=== PATIENT | female | born 1960 | race Caucasian/White ===

== ENCOUNTER 2017-04-09 11:54 | Emergency (ER) | payer BC ==
[2017-04-09 13:25] VITALS: BP 139/59
--- NOTE | 2017-04-09 13:56 | UC ---
Abdominal Pain Female HPI - HPI Summary HPI Summary: 56 y/o female presents to the urgent care c/o urinary frequency and pelvic pressure and cramping pain at times since 04/04/2017. Pt reports symptoms started after Thanksgiving, she developed similar symptoms and her PCP Dx with UTI, Rx Bactrim for 7 days. She finished ABx on 04/02/2017 and Sx return. Pt has been drinking cranberry juice. She feels pressure goes up to her ribs at times. However she has been mildly constipates. Today she did a good BM. Pain is dull pressure 06/02/ Pt denies fever, SOB, chest pain, lower back pain, N/V/ D. She had a PAP on 01/2017 and OBGYN Dx with Hx of kidney function distress. PAP was negative - History of Current Complaint Chief Complaint: UCGU Stated Complaint: URINARY Time Seen by Provider: 04/09/17 13:42 Hx Obtained From: Patient Hx Last Menstrual Period: 2015 Onset/Duration: Gradual Onset, Lasting Days - 5 days, Lasting Weeks, Still Present Severity Initially: Mild Severity Currently: Mild Pain Intensity: 2 Pain Scale Used: 0-10 Numeric Location: Suprapubic Radiates: Yes Radiates to: Other - to ribs at times Character: Dull Aggravating Factor(s): Nothing Alleviating Factor(s): Medications - ABX Rx by PCP Associated Signs and Symptoms: Positive: Constipation - mild, but has been resolving, Vaginal Discharge. Negative: Fever, Cough, Chest Pain, Back Pain, Vaginal Bleeding, Nausea, Vomiting, Diarrhea - Risk Factors Ectopic Risk Factor: Negative Ovarian Torsion Risk Factor: Negative Allergies/Adverse Reactions: Allergies Allergy/AdvReac Type Severity Reaction Status Date / Time No Known Allergies Allergy Verified 04/09/17 13:25 PMH/Surg Hx/FS Hx/Imm Hx Previously Healthy: Yes Other Endocrine History: shingles GI/ History: Gastroesophageal Reflux - Surgical History Surgical History: None Surgery Procedure, Year, and Place: uterine ablation 2015 - Family History Known Family History: Positive: Cardiac Disease, Hypertension, Diabetes - Social History Occupation: Employed Part-time Lives: With Family Alcohol Use: Weekly Substance Use Type: None Smoking Status (MU): Former Smoker Review of Systems Constitutional: Negative Skin: Negative Eyes: Negative ENT: Negative Respiratory: Negative Cardiovascular: Negative Gastrointestinal: Other - suprapubic pain Genitourinary: Dysuria, Frequency, Urgency, Vaginal/Penile Discharge - mild Motor: Negative Neurovascular: Negative Musculoskeletal: Negative Neurological: Negative Psychological: Negative Is Patient Immunocompromised?: No All Other Systems Reviewed And Are Negative: Yes Physical Exam Triage Information Reviewed: Yes Vital Signs: Initial Vital Signs Temp 98 F 04/09/17 13:11 Pulse 72 04/09/17 13:11 Resp 18 04/09/17 13:11 BP 139/59 04/09/17 13:11 - Additional Comments Vital signs: reviewed General: well developed, well nourished obese female sitting in the examining table w/o any apparent distress. Head: Normocephalic, no lesions. Eyes: PERRLA, EOM's full, conjunctivae clear, fundi grossly normal. Ears: EAC's clear, TM's normal. Nose: Mucosa normal, no obstruction. Throat: Clear, no exudates, no lesions. Neck: Supple, no masses, no thyromegaly, no bruits. Chest: Lungs clear, no rales, no rhonchi, no wheezes. Heart: RR, no murmurs, no rubs, no gallops. Abdomen: Soft, no tenderness, no masses, BS normal. : Normal, no lesions, no discharge, no hernias noted. Pelvic: I was assisted by Nurse Ivon. External genitalia within normal limits. There is no lesions there is no masses noted. Speculum exam: The vaginal harris are within normal limits w/ white vaginal discharge and fishy order, no lesions or rashes. The cervix is closed with no lesions or masses. There is no CMT's, and no adnexal masses. Sample sent taken to sent to lab to r/o BV and Candidiasis. Rectal: No lesions, no hemorrhoids, Back: Normal curvature, no tenderness. Extremities: FROM, no deformities, no edema, no erythema. Neuro: Physiological, no localizing findings. Skin: Normal, no rashes, no lesions noted. Abd Pain Female Course/Dx - Course Course Of Treatment: 56 y/o female presents to the urgent care c/o urinary frequency and pelvic pressure and cramping pain at times since 04/04/2017. Pt reports symptoms started after Thanksgiving, she developed similar symptoms and her PCP Dx with UTI, Rx Bactrim for 7 days. She finished ABX on 04/02/2017 and Sx return. Pt has been drinking cranberry juice. She feels pressure goes up to her ribs at times. However she has been mildly constipates. Today she did a good BM. Pain is dull pressure 06/02/ Pt denies fever, SOB, chest pain, lower back pain, N/V/D. She had a PAP on 01/2017 and OBGYN Dx with Hx of kidney function distress. PAP was negative. Hx obtained. UA ordered. UA results:+ Leukoesterase trace H. Pelvic exam performed and a white vaginal discahrged with fishy ordere observed. Pt Rx Metronidazole vaginal cream to Tx BV prophylactically. However sample sent to r/o BV and Ester. Pt Rx Pyridium 100mg PO TID x 2 days to alleviate symptoms of Dysuria. Advised to increase fluid intake. Urine sent for culture if any abnormality Pt will be notified for further treatment. Pt advised If symptoms do not improve to return to the urgent care or f/u with PCP. Pt understood and agreed. Left the clinic ambulating. - Differential Dx/Diagnosis Differential Diagnosis: Pelvic Inflammatory Disease, Renal Colic, Urinary Tract Infection Provider Diagnoses: 1- Dysuria. 2- Bacterial Vaginosis Discharge - Discharge Plan Condition: Stable Disposition: HOME Prescriptions: metroNIDAZOLE VAGINAL 0.75%* 1 applic VAGINAL BEDTIME #1 ru Phenazopyridine TAB* [Pyridium 100 mg TAB*] 100 mg PO TID #6 tab Patient Education Materials: Bacterial Vaginosis (ED), Dysuria (ED) Referrals: Matt Chaves MD [Primary Care Provider] - 3 Days Additional Instructions: 1- Please take Pyridium 100 mg PO TID x 2 days to alleviate urinary symptoms. Increase increase fluid intake. drink cranberry juice. 2-Urine and vaginal swab sent to lab if any abnormality, you will be notified for further treatment. 3- Apply Metronidazole gel as directed to resolve vaginal discharge 4-If symptoms do not improve please f/u with her PCP for further .evaluation and treatment
== END 2017-04-09 14:32 | disposition home or self-care (01) ==
LOC: UCCORT 11:54
DX: N76.0 Acute vaginitis (principal); R30.0 Dysuria; K21.9 Gastro-esophageal reflux disease without esophagitis; E66.9 Obesity, unspecified; Z87.891 Personal history of nicotine dependence
CPT/HCPCS: 81003; 87086; 87480; 87510; 99212; G0463

== ENCOUNTER 2017-08-31 10:56 | Emergency (ER) | payer BC ==
[2017-08-31 12:13] VITALS: BP 123/53
--- NOTE | 2017-08-31 13:39 | RAD ---
Indication: Left upper quadrant pain. Flat and upright views of the abdomen demonstrates no free air. No dilated loops of bowel are noted. Psoas margins are intact. There is stool in the right colon. There is suggestion of a radiopaque foreign body overlying the left.. Ramus likely representing the tip of a pen. Clinical correlation is suggested. IMPRESSION: Fecal stasis. Foreign body overlying the left superior pubic rami likely representing a pen.
--- NOTE | 2017-08-31 13:57 | UC ---
Abdominal Pain Female HPI - HPI Summary HPI Summary: 56 yo constipated x 1 week started Garcia diet 3 weeks ago has had constipation in the past never this bad no f/c no n/v - History of Current Complaint Chief Complaint: UCGI Stated Complaint: SX'S OF CONSTIPATION Time Seen by Provider: 08/31/17 12:47 Hx Obtained From: Patient Hx Last Menstrual Period: 2015 Onset/Duration: Sudden Onset, Lasting Days Timing: Constant Severity Initially: Mild Severity Currently: Moderate Pain Intensity: 6 Pain Scale Used: 0-10 Numeric Location: Discrete At: LUQ Radiates: No Character: Cramping Aggravating Factor(s): Nothing Alleviating Factor(s): Nothing Associated Signs and Symptoms: Positive: Constipation Allergies/Adverse Reactions: Allergies Allergy/AdvReac Type Severity Reaction Status Date / Time No Known Allergies Allergy Verified 08/31/17 12:03 Home Medications: Home Medications Cholecalciferol (Vitamin D3) [Vitamin D3] 2,000 unit PO 08/31/17 [History] L.acidoph,Paracasei, B.lactis [Probiotic] 1 each PO 08/31/17 [History] Levothyroxine TAB* [Synthroid TAB*] 25 mcg PO DAILY 08/31/17 [History Confirmed 08/31/17] Multivitamins/Minerals TAB* [Theragran/minerals TAB*] 1 tab PO DAILY 08/31/17 [ History Confirmed 08/31/17] PMH/Surg Hx/FS Hx/Imm Hx Previously Healthy: Yes GI/ History: Gastroesophageal Reflux, Diverticulitis - Surgical History Surgical History: Yes Surgery Procedure, Year, and Place: uterine ablation 2015 - Family History Known Family History: Positive: Cardiac Disease, Hypertension, Diabetes - Social History Alcohol Use: None Substance Use Type: None Smoking Status (MU): Former Smoker When Did the Patient Quit Smoking/Using Tobacco: college Review of Systems Constitutional: Negative Skin: Negative Eyes: Negative ENT: Negative Respiratory: Negative Cardiovascular: Negative Gastrointestinal: Abdominal Pain, Other - constipation Genitourinary: Negative Motor: Negative Neurovascular: Negative Musculoskeletal: Negative Neurological: Negative Psychological: Negative Is Patient Immunocompromised?: No All Other Systems Reviewed And Are Negative: Yes Physical Exam Triage Information Reviewed: Yes Appearance: Well-Appearing, No Pain Distress, Well-Nourished Vital Signs: Initial Vital Signs Temp 97.9 F 08/31/17 12:06 Pulse 73 05/11/18 12:06 Resp 20 08/31/17 12:06 BP 123/53 08/31/17 12:06 Pulse Ox 98 08/31/17 12:06 Eyes: Positive: Conjunctiva Clear ENT: Negative: Nasal congestion, Nasal drainage, Trismus, Muffled voice, Hoarse voice Neck: Positive: Supple, Nontender, No Lymphadenopathy Respiratory: Positive: Lungs clear, Normal breath sounds, No respiratory distress, No accessory muscle use Cardiovascular: Positive: RRR, No Murmur Abdomen Description: Positive: Soft, CVA Tenderness (L) - slight. Negative: Nontender - tender LUQ, Hepatomegaly, McBurney's Point Tenderness, Peritoneal Signs, Splenomegaly Musculoskeletal: Positive: ROM Intact, No Edema Neurological Exam: Normal Neurological: Positive: Alert Psychological Exam: Normal Skin Exam: Normal Diagnostics - Radiology No standard instances Xray Interpretation: No Acute Changes - Fecal stasis. Foreign body overlying the left superior pubic rami likely representing a pen. Radiology Interpretation Completed By: Radiologist Abd Pain Female Course/Dx - Course Course Of Treatment: note: I went to XR department. there was a pen under the mat her supine XR was taken on - Differential Dx/Diagnosis Provider Diagnoses: constipation Discharge - Sign-Out/Discharge Documenting (check all that apply): Discharge/Admit/Transfer - Discharge Plan Condition: Stable Disposition: HOME Patient Education Materials: Constipation (DC) Referrals: Matt Chaves MD [Primary Care Provider] - 3 Days (if not better) Additional Instructions: I suggest MILK OF MAGNESIA 30 ml (2 tablespoons every 6 hours ) x 3 days If no results try a fleets enema If still without results MIRALAX to er for new or worsening symptoms recheck for FEVER - Billing Disposition and Condition Condition: STABLE Disposition: HOME
== END 2017-08-31 14:13 | disposition home or self-care (01) ==
LOC: UCCORT 10:56
DX: K59.00 Constipation, unspecified (principal); Z87.891 Personal history of nicotine dependence
CPT/HCPCS: 74019; 81003; 99211; G0463

== ENCOUNTER 2018-11-23 12:14 | Emergency (ER) | payer BC ==
[2018-11-23 13:24] VITALS: BP 122/50
--- NOTE | 2018-11-23 13:36 | UC ---
Throat Pain/Nasal Moy HPI - HPI Summary HPI Summary: 58-year-old female presents with onset of sore throat, general malaise, body aches, and mild nausea yesterday. Also reports an occasional nonproductive cough. Denies fever, ear pain, dysphagia, shortness of breath, abdominal pain, or vomiting. - History of Current Complaint Chief Complaint: UCRespiratory Stated Complaint: ST Time Seen by Provider: 11/23/18 13:00 Hx Obtained From: Patient Hx Last Menstrual Period: 2015 Pain Intensity: 6 - Allergies/Home Medications Allergies/Adverse Reactions: Allergies Allergy/AdvReac Type Severity Reaction Status Date / Time No Known Allergies Allergy Verified 08/31/17 12:03 PMH/Surg Hx/FS Hx/Imm Hx Endocrine History: Hypothyroidism Respiratory History: Asthma GI/ History: Gastroesophageal Reflux - Surgical History Surgical History: Yes Surgery Procedure, Year, and Place: ABLATION - Family History Known Family History: Positive: Cardiac Disease, Hypertension, Diabetes - Social History Occupation: Employed Full-time Lives: With Family Alcohol Use: Daily Substance Use Type: None Smoking Status (MU): Never Smoked Tobacco When Did the Patient Quit Smoking/Using Tobacco: college - Immunization History Vaccination Up to Date: Yes Review of Systems All Other Systems Reviewed And Are Negative: Yes Constitutional: Positive: Chills. Negative: Fever Skin: Negative: Rash Eyes: Negative: Drainage, Eye Redness ENT: Positive: Sore Throat. Negative: Nasal Discharge, Sinus Congestion, Sinus Pain/Tenderness Respiratory: Positive: Cough. Negative: Shortness Of Breath Cardiovascular: Positive: Negative Gastrointestinal: Positive: Nausea. Negative: Abdominal Pain, Vomiting, Diarrhea Genitourinary: Positive: Negative Musculoskeletal: Positive: Negative Neurological: Positive: Negative Is Patient Immunocompromised?: No Physical Exam - Summary Physical Exam Summary: GENERAL APPEARANCE: Alert and cooperative obese adult female and appears to be in no acute distress. EYES: Conjunctiva clear. No drainage. EARS: External auditory canals and tympanic membranes clear, hearing grossly intact. NOSE: No nasal discharge. THROAT: Pharyngeal erythemal. 1+ tonsils with exudate. Uvula midline. NECK: Neck supple, non-tender. Mild anterior cervical lymphadenopathy. CARDIAC: Normal S1 and S2. No S3, S4 or murmurs. Rhythm is regular. There is no peripheral edema, cyanosis or pallor. Extremities are warm and well perfused. Capillary refill is less than 2 seconds. Peripheral pulses intact. LUNGS: Clear to auscultation without rales, rhonchi, wheezing or diminished breath sounds. ABDOMEN: Positive bowel sounds. Soft, nondistended, nontender. No guarding or rebound. No masses or hepatosplenomegally. MUSKULOSKELETAL: ROM intact to all extremities. No joint erythema or tenderness. Normal muscular development. Normal gait. SKIN: Skin normal color, texture and turgor with no lesions or eruptions. Triage Information Reviewed: Yes Vital Signs: Initial Vital Signs Temp 98.4 F 11/23/18 13:17 Pulse 71 11/23/18 13:17 Resp 18 11/23/18 13:17 BP 122/50 11/23/18 13:17 Pulse Ox 98 11/23/18 13:17 Vital Signs Reviewed: Yes Throat Pain/Nasal Course/Dx - Course Course Of Treatment: 58-year-old female presents with onset of sore throat, general malaise, body aches, and mild nausea yesterday. Also reports an occasional nonproductive cough. Denies fever, ear pain, dysphagia, shortness of breath, abdominal pain, or vomiting. Afebrile. Vital signs stable. Patient and pharyngeal erythema, 1 + tonsils with exudate, anterior cervical lymphadenopathy, and otherwise unremarkable exam. Rapid strep test was positive. Will treat for a strep pharyngitis with amoxicillin 500 mg twice a day 10 days as well as symptomatic treatment. She is to follow-up with her primary care provider in 3 days if symptoms are not improving. Anticipatory guidance and warning symptoms were reviewed with the patient. Verbalized understanding and agrees with plan of care. - Differential Dx/Diagnosis Differential Diagnosis/HQI/PQRI: Mononucleosis, Pharyngitis, Sinusitis, Tonsillitis, URI Provider Diagnosis: Strep pharyngitis Discharge - Sign-Out/Discharge Documenting (check all that apply): Patient Departure All imaging exams completed and their final reports reviewed: No Studies - Discharge Plan Condition: Stable Disposition: HOME Prescriptions: Amoxicillin 500 mg PO BID #20 cap Patient Education Materials: Strep Throat (ED) Referrals: Matt Chaves MD [Primary Care Provider] - 3 Days Additional Instructions: Your rapid strep test in the clinic today was positive. We will start you on an antibiotic to treat the infection. Start amoxicillin 500 mg 1 tab twice a day for 10 days. After you have been on antibiotics for 3 days, throw out your toothbrush and replace with a new one to prevent reinfection. Drink plenty of fluids to avoid dehydration especially if you are running any fever. Use salt water gargles several times a day. Take over the counter acetaminophen (Tylenol) or ibuprofen (Advil, Motrin) according to directions as needed for pain or fever. You may also use Chloraseptic spray or Cepacol lonzenges according to directions which contain a numbing medication and can provide some temporary relief from your sore throat. Return here or follow up with your primary care provider in 3-5 days if symptoms do not improve. Seek immediate medical attention in the emergency room if you have fever greater than 100.5 F despite taking acetaminophen or ibuprofen, are unable to swallow or develop drooling, are unable to open your mouth fully, are unable to eat or drink, have pain that is not relieved with over the counter pain medication, have any difficulty breathing, or any worsening of symptoms. - Billing Disposition and Condition Condition: STABLE Disposition: Home - Attestation Statements Provider Attestation: I was available for consult. This patient was seen by the MELCHOR. The patient was not presented to , seen by or examined by ut -Spencer Payton MD
== END 2018-11-23 13:57 | disposition home or self-care (01) ==
LOC: UCCORT 12:14
DX: J02.0 Streptococcal pharyngitis (principal)
CPT/HCPCS: 87651; 99212; G0463

== ENCOUNTER 2019-05-19 16:54 | Emergency (ER) | payer BC ==
[2019-05-19 17:25] VITALS: BP 149/76
--- NOTE | 2019-05-19 17:50 | UC ---
Complaint Female HPI - HPI Summary HPI Summary: Pt presents with c/o gradual onset of dysuria, urinary frequency and urgency X 2 weeks. Pt has been traveling and has not been able to see PCP or seek care. - History Of Current Complaint Chief Complaint: UCGU Stated Complaint: URINARY COMPLAINT Time Seen by Provider: 05/19/19 17:26 Hx Obtained From: Patient Hx Last Menstrual Period: 2016 ?: No Onset/Duration: Gradual Onset, Lasting Days, Still Present Timing: Constant Severity Initially: Mild Severity Currently: Moderate Pain Intensity: 7 Character: Dull, Burning Aggravating Factor(s): Urination Associated Signs And Symptoms: Positive: Negative, Back Pain - Risk Factors Ectopic Risk Factor: Negative Ovarian Torsion Risk Factor: Negative - Allergies/Home Medications Allergies/Adverse Reactions: Allergies Allergy/AdvReac Type Severity Reaction Status Date / Time No Known Allergies Allergy Verified 05/19/19 17:20 Home Medications: Home Medications metFORMIN* [Glucophage 1000 MG TAB *] 1 tab BID 05/19/19 [History Confirmed ] PMH/Surg Hx/FS Hx/Imm Hx Previously Healthy: Yes Endocrine History: Diabetes - Surgical History Surgical History: Yes Surgery Procedure, Year, and Place: ABLATION - Family History Known Family History: Positive: Cardiac Disease, Hypertension, Diabetes - Social History Occupation: Employed Full-time Lives: With Family Alcohol Use: Occasionally Substance Use Type: None Smoking Status (MU): Never Smoked Tobacco Have You Smoked in the Last Year: No When Did the Patient Quit Smoking/Using Tobacco: college - Immunization History Vaccination Up to Date: Yes Review of Systems All Other Systems Reviewed And Are Negative: Yes Constitutional: Positive: Negative Skin: Positive: Negative Eyes: Positive: Negative ENT: Positive: Negative Respiratory: Positive: Negative Cardiovascular: Positive: Negative Gastrointestinal: Positive: Negative Genitourinary: Positive: Dysuria, Frequency, Urgency Motor: Positive: Negative Neurovascular: Positive: Negative Musculoskeletal: Positive: Negative Neurological: Positive: Negative Psychological: Positive: Negative Is Patient Immunocompromised?: No Physical Exam Triage Information Reviewed: Yes Appearance: Well-Appearing, Obese Vital Signs: Initial Vital Signs Temp 97.4 F 05/19/19 17:21 Pulse 64 05/19/19 17:21 Resp 16 05/19/19 17:21 BP 149/76 05/19/19 17:21 Pulse Ox 98 01/27/20 17:21 Vital Signs Reviewed: Yes Eye Exam: Normal ENT Exam: Normal Dental Exam: Normal Neck exam: Normal Respiratory: Positive: Normal breath sounds Cardiovascular Exam: Normal Abdomen Description: Positive: CVA Tenderness (R), CVA Tenderness (L) Musculoskeletal Exam: Normal Neurological Exam: Normal Psychological Exam: Normal Skin Exam: Normal Complaint Female Dx - Differential Dx/Diagnosis Differential Diagnosis/HQI/PQRI: Urinary Tract Infection Provider Diagnosis: UTI (urinary tract infection) Discharge ED - Sign-Out/Discharge Documenting (check all that apply): Patient Departure All imaging exams completed and their final reports reviewed: No Studies - Discharge Plan Condition: Stable Disposition: HOME Prescriptions: Cephalexin CAP* [Keflex 500 CAP*] 500 mg PO Q12H #14 cap Fluconazole 150 MG TAB* [Diflucan 150 MG TAB*] 150 mg PO UC ONCE #2 tablet Patient Education Materials: Urinary Tract Infection in Women (ED) Referrals: Matt Chaves MD [Primary Care Provider] - As Soon As Possible - Billing Disposition and Condition Condition: STABLE Disposition: Home
== END 2019-05-19 18:03 | disposition home or self-care (01) ==
LOC: UCCORT 16:54
DX: N39.0 Urinary tract infection, site not specified (principal); E11.9 Type 2 diabetes mellitus without complications; Z79.84 Long term (current) use of oral hypoglycemic drugs
CPT/HCPCS: 81003; 87077; 87086; 99212; G0463

== ENCOUNTER 2019-11-11 07:49 | Inpatient (IN) ==
[~2019-11-11 07:49] MED LIST: Acetaminophen IV 1 GM/100ML 1,000 MG/100 ML VIAL IVPB ONE; Buffered Lidocaine 1% SYRIN 1 ml INTRADERM ONE; Dexamethasone IV 4 MG/ML VIAL 1 ml VIAL IV SLOW PU ONE; Lactated Ringers 1000 ml BAG 1,000 ML IV SCH
[2019-11-11] MEDS ORDERED: Heparin 5000 UNITS/ML 1 mL VIAL ONE (08:06)
[2019-11-11] MEDS ORDERED: Dexamethasone IV 4 MG/ML VIAL 1 ml VIAL ONE ×2 (08:06→11:13)
[2019-11-11] MEDS ORDERED: Acetaminophen IV 1 GM/100ML 100 ML ONE (08:06)
[2019-11-11] MEDS ORDERED: ceFAZolin 2 GM PREMIX 2 GM/50 ML BAG ONE (08:06)
[2019-11-11] MEDS ORDERED: ceFAZolin 1 GM ADVAN 1 GM ADDV.VIAL IVPB ONE (08:06)
[2019-11-11] MEDS ORDERED: Propofol 10 MG/ML 20 ML BTL ONE (08:27)
[2019-11-11] MEDS ORDERED: Midazolam 2 mg/2 ml VIAL 1 mg/ml 2 ml VIAL (2 mg) ONE (08:27)
[2019-11-11] MEDS ORDERED: fentaNYL 250 mcg/5 ml 50 MCG/ML 5 ml VIAL (250 MCG) ONE (08:27)
[2019-11-11] MEDS ORDERED: Ketamine HCL 50 mg/ml 10 ml VIAL (500 MG) ONE (08:27)
[2019-11-11] MEDS ORDERED: Lidocaine 2% PF 5 ML VIAL ONE ×3 (08:27→11:13)
[2019-11-11] MEDS ORDERED: Rocuronium 50 mg VIAL 10 mg/ml 5 ml VIAL (50 mg) ONE ×2 (08:27→09:37)
[2019-11-11] MEDS ORDERED: Ondansetron 4 mg VIAL 2 MG/ML 2 ml VIAL IV PRN ×2 (11:08→12:10)
[2019-11-11] MEDS ORDERED: Naloxone 0.4 mg VIAL 0.4 mg/ml 1 ml VIAL IV PRN (11:08)
[2019-11-11] MEDS ORDERED: fentaNYL 100 mcg/2 ml 50 MCG/ML VIAL IV PRN (11:08)
[2019-11-11] MEDS ORDERED: Ondansetron 4 mg VIAL 2 MG/ML 2 ml VIAL ONE (11:13)
[2019-11-11] MEDS ORDERED: Sugammadex 500 MG/5 ML 5 ml VIAL IV PUSH ONE (11:17)
[2019-11-11] MEDS ORDERED: HYDROmorphone 1 MG/1 ML SYRINGE ONE (13:00)
[2019-11-11] MEDS: HYDROmorphone 1 MG/1 ML SYRINGE IV PRN ×5 (13:08→13:31)
[2019-11-11] MEDS: Lactated Ringers 1000 ml BAG 1,000 ML IV SCH ×2 (14:27→21:18)
[2019-11-11] MEDS: Heparin 5000 UNITS/ML 1 mL VIAL SUBCUT SCH (15:55)
[2019-11-11] MEDS: HYDROmorphone 0.5 MG/0.5 ML SYRINGE IV SLOW PU PRN ×2 (15:55→22:50)
[2019-11-12] MEDS: Heparin 5000 UNITS/ML 1 mL VIAL SUBCUT SCH ×3 (00:32→17:12)
[2019-11-12] MEDS: HYDROcodone/ACET. 7.5/325 LIQ 15 ML UDC PO PRN ×3 (03:12→15:46)
[2019-11-12] MEDS: Lactated Ringers 1000 ml BAG 1,000 ML IV SCH (04:53)
[2019-11-12] MEDS: HYDROmorphone 0.5 MG/0.5 ML SYRINGE IV SLOW PU PRN (06:29)
[2019-11-12] MEDS: D5W 1/2 NS KCl 20 meq 1000 ml 1,000 ML IV SCH ×2 (12:51→20:47)
[2019-11-13] MEDS: Heparin 5000 UNITS/ML 1 mL VIAL SUBCUT SCH ×2 (00:09→08:12)
[2019-11-13] MEDS: D5W 1/2 NS KCl 20 meq 1000 ml 1,000 ML IV SCH (04:45)
[2019-11-13] MEDS: HYDROcodone/ACET. 7.5/325 LIQ 15 ML UDC PO PRN (05:51)
[2019-11-13 11:11] VITALS: BP 111/44
[2019-11-14] MEDS ORDERED: Scopolamine PATCH Remove NOTE PATCH OFF SCH (13:00)
== END 2019-11-13 12:31 | disposition home or self-care (01) | DRG 403 ==
LOC: AA 07:49 → SSU 14:18
PROVIDERS: ADMIT Surgery; ATTEND Surgery

== ENCOUNTER 2019-11-26 13:53 | Inpatient (IN) ==
[2019-11-26] MEDS: NS 0.9% 1000 ml BAG 1,000 ML IV SCH (16:29)
[2019-11-26] MEDS ORDERED: ZOSYN 3.375 GM x ONE DOSE over 30 miuntes IV (17:00)
[2019-11-26 17:10] LABS: ABS Eosinophils 0.1 10^3/ul (0-0.6); ABS Lymphocytes 0.9 10^3/ul (1.0-4.8); ABS Monocytes 0.7 10^3/ul (0-0.8); ABS Neutrophils 8.9 10^3/ul (1.5-7.7); Eosinophil % 0.5 %; Hematocrit 24 % (35-47); Hemoglobin 8.2 g/dL (12.0-16.0); Lymphocyte % 8.6 %; Mean Corpuscular HGB Conc 35 g/dL (31-36); Mean Corpuscular Hemoglobin 29 pg (27-31); Mean Corpuscular Volume 84 fL (80-97); Mean Platelet Volume 7.4 fL (7.4-10.4); Platelet Count 516 10^3/uL (150-450); Red Cell Distribution Width 15 % (10-15); White Blood Count 10.6 10^3/uL (3.5-10.8)
[2019-11-26 17:20] LABS: Activated Partial Thrombo Time 31.2 seconds (26.0-38.0); INR 1.44 (0.82-1.09)
[2019-11-26 17:26] LABS: Albumin 3.2 g/dL (3.2-5.2); Albumin/Globulin Ratio 0.9 (1-3); BUN/Creatinine Ratio 18.1 (8-20); Calcium 8.7 mg/dL (8.6-10.3); EGFR African American 85.4 (>60); EGFR Non-African American 70.6 (>60); Globulin 3.4 g/dL (2-4); Potassium 3.2 mmol/L (3.5-5.0); Total Bilirubin 1.6 mg/dL (0.2-1.0); Total Protein 6.6 g/dL (6.4-8.9)
[2019-11-26] MEDS: HYDROmorphone 0.5 MG/0.5 ML SYRINGE IV SLOW PU PRN (19:45)
[2019-11-26] MEDS: Piperacillin/Tazobactam VIAL 3.375 GM in NS 0.9% 100 ml BAG 100 ML IVPB SCH (21:27)
[2019-11-27] MEDS: NS 0.9% 1000 ml BAG 1,000 ML IV SCH ×3 (01:19→17:43)
[2019-11-27] MEDS: Ondansetron 4 mg VIAL 2 MG/ML 2 ml VIAL IV PRN ×3 (01:41→22:47)
[2019-11-27] MEDS: Piperacillin/Tazobactam VIAL 3.375 GM in NS 0.9% 100 ml BAG 100 ML IVPB SCH ×3 (05:17→20:24)
[2019-11-27 15:22] LABS: C Reactive Protein 429.52 mg/L (<8.01)
[2019-11-28] MEDS ORDERED: Ondansetron 4 mg VIAL 2 MG/ML 2 ml VIAL IV SCH
[2019-11-28] MEDS ORDERED: Rocuronium 50 mg VIAL 10 mg/ml 5 ml VIAL (50 mg) IV SCH
[2019-11-28] MEDS ORDERED: Dexamethasone IV 4 MG/ML VIAL 1 ml VIAL IV SLOW PU SCH
[2019-11-28] MEDS ORDERED: Propofol 10 MG/ML 20 ML BTL IV SCH
[2019-11-28] MEDS ORDERED: Midazolam 2 mg/2 ml VIAL 1 mg/ml 2 ml VIAL (2 mg) IV SLOW PU SCH
[2019-11-28] MEDS ORDERED: fentaNYL 100 mcg/2 ml 50 MCG/ML VIAL IV SCH
[2019-11-28] MEDS: Piperacillin/Tazobactam VIAL 3.375 GM in NS 0.9% 100 ml BAG 100 ML IVPB SCH ×3 (04:14→21:52)
[2019-11-28] MEDS: NS 0.9% 1000 ml BAG 1,000 ML IV SCH (04:14)
[2019-11-28] MEDS ORDERED: Buffered Lidocaine 1% SYRIN 1 ml INTRADERM ONE (06:00)
[2019-11-28] MEDS ORDERED: Lactated Ringers 1000 ml BAG 1,000 ML IV SCH (06:00)
[2019-11-28] MEDS ORDERED: Bupivacaine 0.25% EPI 200,000 30 ML SDV ONE (14:12)
[2019-11-28] MEDS ORDERED: Succinylcholine 200 mg VIAL 20 mg/ml 10 ml VIAL (200 mg) ONE (15:21)
[2019-11-28] MEDS ORDERED: Methylene Blue 0.5 % 50 MG/10 ML AMP IV ONE (15:23)
[2019-11-28] MEDS ORDERED: Ondansetron 4 mg VIAL 2 MG/ML 2 ml VIAL ONE (16:08)
[2019-11-28] MEDS ORDERED: Dexamethasone IV 4 MG/ML VIAL 1 ml VIAL ONE (16:08)
[2019-11-28] MEDS ORDERED: Naloxone 0.4 mg VIAL 0.4 mg/ml 1 ml VIAL IV PRN (16:44)
[2019-11-28] MEDS ORDERED: Acetaminophen IV 1 GM/100ML 1,000 MG/100 ML VIAL IVPB ONE (16:49)
[2019-11-28 16:53] LABS: ABS Lymphocytes 0.4 10^3/ul (1.0-4.8); ABS Monocytes 0.4 10^3/ul (0-0.8); ABS Neutrophils 9.2 10^3/ul (1.5-7.7); Hematocrit 18 % (35-47); Lymphocyte % 3.8 %; Mean Corpuscular HGB Conc 33 g/dL (31-36); Mean Corpuscular Hemoglobin 29 pg (27-31); Mean Corpuscular Volume 87 fL (80-97); Mean Platelet Volume 7.6 fL (7.4-10.4); Platelet Count 378 10^3/uL (150-450); Red Blood Count 2.06 10^6 /uL (3.70-4.87); Red Cell Distribution Width 15 % (10-15)
[2019-11-28] MEDS ORDERED: NS 0.9% IV ONE (16:53)
[2019-11-28] MEDS: fentaNYL 100 mcg/2 ml 50 MCG/ML VIAL IV PRN ×2 (16:55→17:02)
[2019-11-28] MEDS ORDERED: Vancomycin 1500 MG IV - x ONCE IVPB ONE (17:00)
[2019-11-28 17:04] LABS: Calcium 7.5 mg/dL (8.6-10.3); EGFR African American 121.9 (>60); EGFR Non-African American 100.7 (>60); Potassium 3.6 mmol/L (3.5-5.0)
[2019-11-28 17:14] LABS: Troponin I 0.02 ng/mL (<0.03)
[2019-11-28 17:40] LABS: Polychromasia 1+; Spherocytes 2+
[2019-11-28 17:47] LABS: Fibrinogen 788.7 mg/dL (110.8-404.3); INR 1.55 (0.82-1.09)
[2019-11-28] MEDS ORDERED: Magnesium Sulfate 2 gm BAG 2 GM/50 ML BAG IVPB ONE (18:01)
[2019-11-28] MEDS ORDERED: Metoprolol Tartrate 5 mg VIAL 5 ml VIAL (1 mg/ml) IV ONE (18:11)
[2019-11-28] MEDS: Acetaminophen IV 1 GM/100ML 100 ML IVPB SCH ×2 (18:47→22:08)
[2019-11-28 21:52] LABS: Hematocrit 22 % (35-47); Hemoglobin 7.7 g/dL (12.0-16.0)
[2019-11-28] MEDS: Lactated Ringers 1000 ml BAG 1,000 ML IV SCH (22:13)
[2019-11-29 02:38] LABS: Hematocrit 22 % (35-47); Hemoglobin 7.6 g/dL (12.0-16.0)
[2019-11-29] MEDS: Lactated Ringers 1000 ml BAG 1,000 ML IV SCH ×2 (04:01→12:09)
[2019-11-29] MEDS: Piperacillin/Tazobactam VIAL 3.375 GM in NS 0.9% 100 ml BAG 100 ML IVPB SCH (04:54)
[2019-11-29] MEDS: Acetaminophen IV 1 GM/100ML 100 ML IVPB SCH (06:14)
[2019-11-29 06:36] LABS: ABS Lymphocytes 0.6 10^3/ul (1.0-4.8); ABS Monocytes 0.5 10^3/ul (0-0.8); ABS Neutrophils 10.5 10^3/ul (1.5-7.7); Hematocrit 22 % (35-47); Hemoglobin 7.4 g/dL (12.0-16.0); Lymphocyte % 4.9 %; Mean Corpuscular HGB Conc 34 g/dL (31-36); Mean Corpuscular Hemoglobin 29 pg (27-31); Mean Corpuscular Volume 85 fL (80-97); Mean Platelet Volume 7.7 fL (7.4-10.4); Platelet Count 469 10^3/uL (150-450); Red Blood Count 2.58 10^6 /uL (3.70-4.87); Red Cell Distribution Width 16 % (10-15); White Blood Count 11.6 10^3/uL (3.5-10.8)
[2019-11-29 06:51] LABS: Albumin 2.7 g/dL (3.2-5.2); BUN/Creatinine Ratio 29.2 (8-20); C Reactive Protein 459.6 mg/L (<8.01); Calcium 8.1 mg/dL (8.6-10.3); EGFR African American 100.7 (>60); EGFR Non-African American 83.2 (>60); Globulin 2.8 g/dL (2-4); Potassium 3.4 mmol/L (3.5-5.0); Total Protein 5.5 g/dL (6.4-8.9)
[2019-11-29] MEDS ORDERED: Magnesium Sulfate 2 gm BAG 2 GM/50 ML BAG IVPB ONE (08:12)
[2019-11-29] MEDS ORDERED: Zosyn per Pharmacy NOTE FOLLOW UP SCH (09:00)
[2019-11-29] MEDS: KCL 10 MEQ/50 ML IVPREMIX 10 MEQ/50 ML BAG IV SCH ×2 (09:26→11:15)
[2019-11-29] MEDS: ZOSYN 3.375 GM Q6H - Intermittant 30 min Infusion IV SCH ×2 (11:15→17:21)
[2019-11-29] MEDS: Enoxaparin 40 MG/0.4 ML SYR SUBCUT SCH (11:15)
[2019-11-29] MEDS: HYDROmorphone 0.5 MG/0.5 ML SYRINGE IV SLOW PU PRN ×2 (12:02→20:23)
[2019-11-29 13:54] LABS: Magnesium 2.5 mg/dL (1.9-2.7)
[2019-11-29] MEDS: Pantoprazole VIAL 40 MG VIAL IV SCH (14:31)
[2019-11-29] MEDS ORDERED: TPN 24 HR with D10W 1000 ml BAG 1,000 ML, Amino Acid Infusion 10% 850 ML, Sterile Water... IV SCH (17:00)
[2019-11-30] MEDS: ZOSYN 3.375 GM Q6H - Intermittant 30 min Infusion IV SCH ×5 (00:03→22:52)
[2019-11-30 05:19] LABS: ABS Lymphocytes 1.3 10^3/ul (1.0-4.8); ABS Monocytes 0.5 10^3/ul (0-0.8); ABS Neutrophils 11.7 10^3/ul (1.5-7.7); Eosinophil % 0.1 %; Hematocrit 22 % (35-47); Hemoglobin 7.5 g/dL (12.0-16.0); Lymphocyte % 9.3 %; Mean Corpuscular HGB Conc 34 g/dL (31-36); Mean Corpuscular Hemoglobin 29 pg (27-31); Mean Corpuscular Volume 85 fL (80-97); Mean Platelet Volume 7.7 fL (7.4-10.4); Nucleated Red Blood Cells % 0.1; Platelet Count 555 10^3/uL (150-450); Red Cell Distribution Width 16 % (10-15); White Blood Count 13.5 10^3/uL (3.5-10.8)
[2019-11-30 05:25] LABS: INR 1.41 (0.82-1.09)
[2019-11-30 05:33] LABS: EGFR Non-African American 67.8 (>60); Magnesium 2.5 mg/dL (1.9-2.7); Phosphorus 1.9 mg/dL (2.5-5.0); Potassium 3.5 mmol/L (3.5-5.0)
[2019-11-30] MEDS: HYDROmorphone 0.5 MG/0.5 ML SYRINGE IV SLOW PU PRN ×4 (06:39→22:44)
[2019-11-30] MEDS ORDERED: Potassium Phosphate IV 15 MMOLE in NS 0.9% 250 ml 250 ML IVPB ONE (11:00)
[2019-11-30] MEDS: Enoxaparin 40 MG/0.4 ML SYR SUBCUT SCH (11:20)
[2019-11-30] MEDS: Pantoprazole VIAL 40 MG VIAL IV SCH (13:19)
[2019-11-30] MEDS: TPN 24 HR with D10W 1000 ml BAG 1,000 ML, Amino Acid Infusion 10% 850 ML, Sterile Water... IV SCH (16:35)
[2019-12-01] MEDS: Lactated Ringers 1000 ml BAG 1,000 ML IV SCH ×2 (02:03→13:14)
[2019-12-01] MEDS: HYDROmorphone 0.5 MG/0.5 ML SYRINGE IV SLOW PU PRN ×3 (03:12→18:16)
[2019-12-01] MEDS: ZOSYN 3.375 GM Q6H - Intermittant 30 min Infusion IV SCH (05:49)
[2019-12-01 05:55] LABS: Hematocrit 24 % (35-47); Hemoglobin 7.9 g/dL (12.0-16.0); Mean Corpuscular HGB Conc 34 g/dL (31-36); Mean Corpuscular Hemoglobin 29 pg (27-31); Mean Corpuscular Volume 86 fL (80-97); Mean Platelet Volume 7.6 fL (7.4-10.4); Platelet Count 555 10^3/uL (150-450); Red Blood Count 2.75 10^6 /uL (3.70-4.87); Red Cell Distribution Width 16 % (10-15); White Blood Count 11.1 10^3/uL (3.5-10.8)
[2019-12-01 06:09] LABS: Calcium 7.8 mg/dL (8.6-10.3); Potassium 3.6 mmol/L (3.5-5.0)
[2019-12-01 06:15] LABS: BUN/Creatinine Ratio 30.9 (8-20); EGFR African American 107.5 (>60); EGFR Non-African American 88.9 (>60); Phosphorus 2.1 mg/dL (2.5-5.0)
[2019-12-01 06:35] LABS: ABS Basophils 0.1 10^3/ul (0-0.2); ABS Eosinophils 0.1 10^3/ul (0-0.6); ABS Lymphocytes 1.6 10^3/ul (1.0-4.8); ABS Monocytes 0.6 10^3/ul (0-0.8); ABS Neutrophils 8.7 10^3/ul (1.5-7.7); Eosinophil % 1.3 %; Lymphocyte % 14.2 %; Nucleated Red Blood Cells % 0.1
[2019-12-01] MEDS: Levothyroxine 100 MCG/5 ML VIAL IV SCH (06:52)
[2019-12-01] MEDS: Enoxaparin 40 MG/0.4 ML SYR SUBCUT SCH (11:30)
[2019-12-01] MEDS: cefTRIAXone 2 GM ADDV.VIAL 2 GM in NS 0.9% 100 ml BAG 100 ML IV SCH (11:30)
[2019-12-01] MEDS ORDERED: Potassium Phosphate IV 15 MMOLE in NS 0.9% 250 ml 250 ML IVPB ONE (12:00)
[2019-12-01] MEDS: Pantoprazole VIAL 40 MG VIAL IV SCH (14:11)
[2019-12-01] MEDS: TPN 24 HR with D10W 1000 ml BAG 1,000 ML, Amino Acid Infusion 10% 850 ML, Sterile Water... IV SCH (16:54)
[2019-12-01] MEDS: metroNIDAZOLE IV 500 MG/100ML 500 MG/100 ML BAG IVPB SCH (23:33)
[2019-12-02] MEDS: HYDROmorphone 0.5 MG/0.5 ML SYRINGE IV SLOW PU PRN ×5 (03:04→21:45)
[2019-12-02 05:42] LABS: Albumin 2.8 g/dL (3.2-5.2); Albumin/Globulin Ratio 0.9 (1-3); BUN/Creatinine Ratio 24.6 (8-20); Calcium 8.2 mg/dL (8.6-10.3); EGFR African American 121.9 (>60); EGFR Non-African American 100.7 (>60); Phosphorus 3.6 mg/dL (2.5-5.0); Potassium 3.9 mmol/L (3.5-5.0); Total Bilirubin 0.9 mg/dL (0.2-1.0); Total Protein 5.8 g/dL (6.4-8.9)
[2019-12-02] MEDS: Levothyroxine 100 MCG/5 ML VIAL IV SCH (06:11)
[2019-12-02] MEDS: metroNIDAZOLE IV 500 MG/100ML 500 MG/100 ML BAG IVPB SCH ×2 (07:49→21:45)
[2019-12-02 09:44] LABS: C Reactive Protein 200.71 mg/L (<8.01)
[2019-12-02] MEDS: Enoxaparin 40 MG/0.4 ML SYR SUBCUT SCH (11:03)
[2019-12-02] MEDS: cefTRIAXone 2 GM ADDV.VIAL 2 GM in NS 0.9% 100 ml BAG 100 ML IV SCH (11:03)
[2019-12-02] MEDS: Pantoprazole VIAL 40 MG VIAL IV SCH (13:27)
[2019-12-02] MEDS: TPN 24 HR with D10W 1000 ml BAG 1,000 ML, Amino Acid Infusion 10% 850 ML, Sterile Water... IV SCH (16:35)
[2019-12-03] MEDS: HYDROmorphone 0.5 MG/0.5 ML SYRINGE IV SLOW PU PRN ×6 (01:55→22:00)
[2019-12-03] MEDS: Levothyroxine 100 MCG/5 ML VIAL IV SCH (05:39)
[2019-12-03 07:02] LABS: BUN/Creatinine Ratio 22.5 (8-20); Calcium 8.5 mg/dL (8.6-10.3); EGFR African American 102.3 (>60); EGFR Non-African American 84.6 (>60); Magnesium 2.2 mg/dL (1.9-2.7); Phosphorus 3.8 mg/dL (2.5-5.0); Potassium 4.3 mmol/L (3.5-5.0)
[2019-12-03] MEDS: metroNIDAZOLE IV 500 MG/100ML 500 MG/100 ML BAG IVPB SCH ×2 (08:21→20:21)
[2019-12-03] MEDS: Enoxaparin 40 MG/0.4 ML SYR SUBCUT SCH (11:59)
[2019-12-03] MEDS: cefTRIAXone 2 GM ADDV.VIAL 2 GM in NS 0.9% 100 ml BAG 100 ML IV SCH (11:59)
[2019-12-03] MEDS: Pantoprazole VIAL 40 MG VIAL IV SCH (11:59)
[2019-12-03 12:18] LABS: Hematocrit 26 % (35-47); Mean Corpuscular HGB Conc 35 g/dL (31-36); Mean Corpuscular Hemoglobin 30 pg (27-31); Mean Corpuscular Volume 85 fL (80-97); Mean Platelet Volume 7.8 fL (7.4-10.4); Platelet Count 569 10^3/uL (150-450); Red Blood Count 3.04 10^6 /uL (3.70-4.87); Red Cell Distribution Width 16 % (10-15); White Blood Count 10.5 10^3/uL (3.5-10.8)
[2019-12-03 12:41] LABS: ABS Basophils 0.1 10^3/ul (0-0.2); ABS Eosinophils 0.3 10^3/ul (0-0.6); ABS Lymphocytes 1.4 10^3/ul (1.0-4.8); ABS Monocytes 0.9 10^3/ul (0-0.8); ABS Neutrophils 7.8 10^3/ul (1.5-7.7); Eosinophil % 2.8 %; Lymphocyte % 13.7 %; Nucleated Red Blood Cells % 0.2
[2019-12-03 12:44] LABS: Polychromasia 1+
[2019-12-03] MEDS: TPN 24 HR with Dextrose 50% Water 500 ML, Amino Acid Infusion 10% 850 ML, Sterile Water... CENTR SCH (17:19)
[2019-12-04] MEDS: HYDROmorphone 0.5 MG/0.5 ML SYRINGE IV SLOW PU PRN ×5 (03:20→21:27)
[2019-12-04] MEDS: Levothyroxine 100 MCG/5 ML VIAL IV SCH (06:01)
[2019-12-04] MEDS: metroNIDAZOLE IV 500 MG/100ML 500 MG/100 ML BAG IVPB SCH ×2 (08:35→21:25)
[2019-12-04] MEDS: cefTRIAXone 2 GM ADDV.VIAL 2 GM in NS 0.9% 100 ml BAG 100 ML IV SCH (10:31)
[2019-12-04] MEDS: Enoxaparin 40 MG/0.4 ML SYR SUBCUT SCH (10:35)
[2019-12-04] MEDS: Pantoprazole VIAL 40 MG VIAL IV SCH (13:50)
[2019-12-04] MEDS: TPN 24 HR with Dextrose 50% Water 500 ML, Amino Acid Infusion 10% 850 ML, Sterile Water... CENTR SCH (16:56)
[2019-12-05] MEDS: HYDROmorphone 0.5 MG/0.5 ML SYRINGE IV SLOW PU PRN ×5 (02:48→21:33)
[2019-12-05] MEDS: Levothyroxine 100 MCG/5 ML VIAL IV SCH (05:57)
[2019-12-05 07:02] LABS: Albumin 3.1 g/dL (3.2-5.2); Albumin/Globulin Ratio 0.9 (1-3); Calcium 8.6 mg/dL (8.6-10.3); EGFR African American 100.7 (>60); EGFR Non-African American 83.2 (>60); Globulin 3.4 g/dL (2-4); Magnesium 2.5 mg/dL (1.9-2.7); Potassium 4.5 mmol/L (3.5-5.0); Total Bilirubin 0.8 mg/dL (0.2-1.0); Total Protein 6.5 g/dL (6.4-8.9)
[2019-12-05] MEDS: metroNIDAZOLE IV 500 MG/100ML 500 MG/100 ML BAG IVPB SCH ×2 (09:06→17:23)
[2019-12-05 09:44] LABS: Albumin 3.1 g/dL (3.2-5.2); Albumin/Globulin Ratio 0.9 (1-3); BUN/Creatinine Ratio 26.5 (8-20); Calcium 8.6 mg/dL (8.6-10.3); EGFR African American 107.5 (>60); EGFR Non-African American 88.9 (>60); Globulin 3.4 g/dL (2-4); Magnesium 2.4 mg/dL (1.9-2.7); Phosphorus 3.8 mg/dL (2.5-5.0); Potassium 4.5 mmol/L (3.5-5.0); Total Bilirubin 0.8 mg/dL (0.2-1.0); Total Protein 6.5 g/dL (6.4-8.9)
[2019-12-05 10:03] LABS: C Reactive Protein 92.07 mg/L (<8.01)
[2019-12-05] MEDS: cefTRIAXone 2 GM ADDV.VIAL 2 GM in NS 0.9% 100 ml BAG 100 ML IV SCH (10:51)
[2019-12-05] MEDS: Enoxaparin 40 MG/0.4 ML SYR SUBCUT SCH (10:52)
[2019-12-05] MEDS: Pantoprazole VIAL 40 MG VIAL IV SCH (15:01)
[2019-12-05] MEDS: TPN 24 HR with Dextrose 50% Water 500 ML, Amino Acid Infusion 10% 850 ML, Sterile Water... CENTR SCH (17:22)
[2019-12-06] MEDS: metroNIDAZOLE IV 500 MG/100ML 500 MG/100 ML BAG IVPB SCH ×3 (01:18→17:17)
[2019-12-06] MEDS: HYDROmorphone 0.5 MG/0.5 ML SYRINGE IV SLOW PU PRN ×5 (02:44→22:01)
[2019-12-06] MEDS: Levothyroxine 100 MCG/5 ML VIAL IV SCH (05:56)
[2019-12-06] MEDS: cefTRIAXone 2 GM ADDV.VIAL 2 GM in NS 0.9% 100 ml BAG 100 ML IV SCH (10:44)
[2019-12-06] MEDS: Enoxaparin 40 MG/0.4 ML SYR SUBCUT SCH (11:12)
[2019-12-06] MEDS: Pantoprazole VIAL 40 MG VIAL IV SCH (14:19)
[2019-12-06] MEDS: TPN 24 HR with Dextrose 50% Water 500 ML, Amino Acid Infusion 10% 850 ML, Sterile Water... CENTR SCH (17:08)
[2019-12-07] MEDS: metroNIDAZOLE IV 500 MG/100ML 500 MG/100 ML BAG IVPB SCH ×3 (00:30→16:57)
[2019-12-07] MEDS: HYDROmorphone 0.5 MG/0.5 ML SYRINGE IV SLOW PU PRN ×5 (03:50→23:37)
[2019-12-07] MEDS: Levothyroxine 100 MCG/5 ML VIAL IV SCH (06:09)
[2019-12-07] MEDS: Enoxaparin 40 MG/0.4 ML SYR SUBCUT SCH (11:17)
[2019-12-07] MEDS: cefTRIAXone 2 GM ADDV.VIAL 2 GM in NS 0.9% 100 ml BAG 100 ML IV SCH (11:19)
[2019-12-07] MEDS: Pantoprazole VIAL 40 MG VIAL IV SCH (15:03)
[2019-12-07] MEDS: TPN 24 HR with Dextrose 50% Water 500 ML, Amino Acid Infusion 10% 850 ML, Sterile Water... CENTR SCH (16:57)
[2019-12-08] MEDS: metroNIDAZOLE IV 500 MG/100ML 500 MG/100 ML BAG IVPB SCH ×3 (00:38→17:29)
[2019-12-08] MEDS: Levothyroxine 100 MCG/5 ML VIAL IV SCH (06:03)
[2019-12-08 06:58] LABS: Albumin 3.4 g/dL (3.2-5.2); Albumin/Globulin Ratio 0.9 (1-3); Calcium 8.9 mg/dL (8.6-10.3); EGFR African American 93.2 (>60); Globulin 3.7 g/dL (2-4); Magnesium 2.3 mg/dL (1.9-2.7); Phosphorus 4.4 mg/dL (2.5-5.0); Potassium 4.4 mmol/L (3.5-5.0); Total Bilirubin 0.8 mg/dL (0.2-1.0); Total Protein 7.1 g/dL (6.4-8.9)
[2019-12-08] MEDS: HYDROmorphone 0.5 MG/0.5 ML SYRINGE IV SLOW PU PRN ×4 (09:21→23:00)
[2019-12-08] MEDS: cefTRIAXone 2 GM ADDV.VIAL 2 GM in NS 0.9% 100 ml BAG 100 ML IV SCH (11:29)
[2019-12-08] MEDS: Enoxaparin 40 MG/0.4 ML SYR SUBCUT SCH (11:33)
[2019-12-08 13:41] LABS: C Reactive Protein 30.58 mg/L (<8.01)
[2019-12-08] MEDS: Pantoprazole VIAL 40 MG VIAL IV SCH (13:56)
[2019-12-08] MEDS: TPN 24 HR with Dextrose 50% Water 500 ML, Amino Acid Infusion 10% 850 ML, Sterile Water... CENTR SCH (17:28)
[2019-12-09] MEDS: metroNIDAZOLE IV 500 MG/100ML 500 MG/100 ML BAG IVPB SCH ×3 (01:32→17:13)
[2019-12-09] MEDS: Levothyroxine 100 MCG/5 ML VIAL IV SCH (06:25)
[2019-12-09] MEDS: HYDROmorphone 0.5 MG/0.5 ML SYRINGE IV SLOW PU PRN ×3 (06:26→17:26)
[2019-12-09] MEDS: Enoxaparin 40 MG/0.4 ML SYR SUBCUT SCH (10:59)
[2019-12-09] MEDS: cefTRIAXone 2 GM ADDV.VIAL 2 GM in NS 0.9% 100 ml BAG 100 ML IV SCH (10:59)
[2019-12-09] MEDS: Pantoprazole VIAL 40 MG VIAL IV SCH (15:02)
[2019-12-09] MEDS: TPN 24 HR with Dextrose 50% Water 500 ML, Amino Acid Infusion 10% 850 ML, Sterile Water... CENTR SCH (17:13)
[2019-12-10] MEDS: metroNIDAZOLE IV 500 MG/100ML 500 MG/100 ML BAG IVPB SCH ×3 (00:09→17:35)
[2019-12-10] MEDS: Levothyroxine 100 MCG/5 ML VIAL IV SCH (06:15)
[2019-12-10] MEDS: cefTRIAXone 2 GM ADDV.VIAL 2 GM in NS 0.9% 100 ml BAG 100 ML IV SCH (10:51)
[2019-12-10] MEDS: Enoxaparin 40 MG/0.4 ML SYR SUBCUT SCH (10:53)
[2019-12-10] MEDS: Pantoprazole VIAL 40 MG VIAL IV SCH (14:48)
[2019-12-10] MEDS: TPN 24 HR with Dextrose 50% Water 500 ML, Amino Acid Infusion 10% 850 ML, Sterile Water... CENTR SCH (17:35)
[2019-12-11] MEDS: metroNIDAZOLE IV 500 MG/100ML 500 MG/100 ML BAG IVPB SCH ×3 (00:46→17:37)
[2019-12-11] MEDS: Levothyroxine 100 MCG/5 ML VIAL IV SCH (05:53)
[2019-12-11] MEDS: Nystatin SUSPENSION 100,000 UNITS/ML UDC PO SCH ×4 (08:21→21:45)
[2019-12-11] MEDS: cefTRIAXone 2 GM ADDV.VIAL 2 GM in NS 0.9% 100 ml BAG 100 ML IV SCH (10:57)
[2019-12-11] MEDS: Enoxaparin 40 MG/0.4 ML SYR SUBCUT SCH (10:58)
[2019-12-11] MEDS: Pantoprazole VIAL 40 MG VIAL IV SCH (13:35)
[2019-12-11] MEDS: TPN 24 HR with Dextrose 50% Water 500 ML, Amino Acid Infusion 10% 850 ML, Sterile Water... CENTR SCH (17:37)
[2019-12-12] MEDS: metroNIDAZOLE IV 500 MG/100ML 500 MG/100 ML BAG IVPB SCH ×3 (00:32→16:58)
[2019-12-12] MEDS: Levothyroxine 100 MCG/5 ML VIAL IV SCH (05:33)
[2019-12-12] MEDS: Nystatin SUSPENSION 100,000 UNITS/ML UDC PO SCH ×4 (10:13→21:35)
[2019-12-12] MEDS: Ondansetron 4 mg VIAL 2 MG/ML 2 ml VIAL IV PRN (10:26)
[2019-12-12] MEDS: Enoxaparin 40 MG/0.4 ML SYR SUBCUT SCH (11:48)
[2019-12-12] MEDS: cefTRIAXone 2 GM ADDV.VIAL 2 GM in NS 0.9% 100 ml BAG 100 ML IV SCH (11:48)
[2019-12-12] MEDS: Pantoprazole VIAL 40 MG VIAL IV SCH (13:26)
[2019-12-12 14:20] LABS: Albumin 3.8 g/dL (3.2-5.2); Albumin/Globulin Ratio 1.1 (1-3); BUN/Creatinine Ratio 30.4 (8-20); Calcium 9.1 mg/dL (8.6-10.3); EGFR African American 90.4 (>60); EGFR Non-African American 74.7 (>60); Globulin 3.5 g/dL (2-4); Magnesium 2.1 mg/dL (1.9-2.7); Phosphorus 3.8 mg/dL (2.5-5.0); Potassium 4.5 mmol/L (3.5-5.0); Total Bilirubin 0.7 mg/dL (0.2-1.0); Total Protein 7.3 g/dL (6.4-8.9)
[2019-12-12] MEDS: TPN 24 HR with Dextrose 50% Water 500 ML, Amino Acid Infusion 10% 850 ML, Sterile Water... CENTR SCH (16:58)
[2019-12-13] MEDS: metroNIDAZOLE IV 500 MG/100ML 500 MG/100 ML BAG IVPB SCH ×3 (01:11→17:01)
[2019-12-13] MEDS: Levothyroxine 100 MCG/5 ML VIAL IV SCH (06:02)
[2019-12-13] MEDS: Nystatin SUSPENSION 100,000 UNITS/ML UDC PO SCH ×4 (09:21→21:30)
[2019-12-13] MEDS: Enoxaparin 40 MG/0.4 ML SYR SUBCUT SCH (11:06)
[2019-12-13] MEDS: cefTRIAXone 2 GM ADDV.VIAL 2 GM in NS 0.9% 100 ml BAG 100 ML IV SCH (11:06)
[2019-12-13] MEDS: Pantoprazole VIAL 40 MG VIAL IV SCH (14:58)
[2019-12-13] MEDS: TPN 24 HR with Dextrose 50% Water 500 ML, Amino Acid Infusion 10% 850 ML, Sterile Water... CENTR SCH (17:02)
[2019-12-14] MEDS: metroNIDAZOLE IV 500 MG/100ML 500 MG/100 ML BAG IVPB SCH ×3 (01:28→17:40)
[2019-12-14] MEDS: Levothyroxine 100 MCG/5 ML VIAL IV SCH (06:12)
[2019-12-14] MEDS: Nystatin SUSPENSION 100,000 UNITS/ML UDC PO SCH ×4 (09:39→20:39)
[2019-12-14] MEDS: cefTRIAXone 2 GM ADDV.VIAL 2 GM in NS 0.9% 100 ml BAG 100 ML IV SCH (11:35)
[2019-12-14] MEDS: Enoxaparin 40 MG/0.4 ML SYR SUBCUT SCH (11:35)
[2019-12-14] MEDS: Pantoprazole VIAL 40 MG VIAL IV SCH (14:05)
[2019-12-14] MEDS: TPN 24 HR with Dextrose 50% Water 500 ML, Amino Acid Infusion 10% 850 ML, Sterile Water... CENTR SCH (17:40)
[2019-12-15] MEDS: metroNIDAZOLE IV 500 MG/100ML 500 MG/100 ML BAG IVPB SCH ×2 (00:37→09:18)
[2019-12-15] MEDS: Levothyroxine 100 MCG/5 ML VIAL IV SCH (05:04)
[2019-12-15 05:42] LABS: Albumin 3.7 g/dL (3.2-5.2); Albumin/Globulin Ratio 1.1 (1-3); BUN/Creatinine Ratio 28.9 (8-20); Calcium 9.2 mg/dL (8.6-10.3); EGFR African American 85.4 (>60); EGFR Non-African American 70.6 (>60); Globulin 3.3 g/dL (2-4); Magnesium 2.1 mg/dL (1.9-2.7); Potassium 4.2 mmol/L (3.5-5.0); Total Bilirubin 0.7 mg/dL (0.2-1.0)
[2019-12-15 08:26] LABS: C Reactive Protein 5.2 mg/L (<8.01)
[2019-12-15] MEDS: Nystatin SUSPENSION 100,000 UNITS/ML UDC PO SCH ×4 (09:17→21:35)
[2019-12-15] MEDS: cefTRIAXone 2 GM ADDV.VIAL 2 GM in NS 0.9% 100 ml BAG 100 ML IV SCH (11:16)
[2019-12-15] MEDS: Enoxaparin 40 MG/0.4 ML SYR SUBCUT SCH (11:16)
[2019-12-15] MEDS: Pantoprazole VIAL 40 MG VIAL IV SCH (13:57)
[2019-12-16] MEDS: Levothyroxine 100 MCG/5 ML VIAL IV SCH (05:10)
[2019-12-16] MEDS: Nystatin SUSPENSION 100,000 UNITS/ML UDC PO SCH ×2 (08:53→12:24)
[2019-12-16] MEDS ORDERED: HYDROmorphone 0.5 MG/0.5 ML SYRINGE IV ONE (10:00)
[2019-12-16] MEDS ORDERED: HYDROmorphone 0.5 MG/0.5 ML SYRINGE ONE (10:08)
[2019-12-16] MEDS: Enoxaparin 40 MG/0.4 ML SYR SUBCUT SCH (10:17)
[2019-12-16 11:40] VITALS: BP 109/48
[2019-12-16] MEDS: Pantoprazole VIAL 40 MG VIAL IV SCH (12:58)
[2019-12-16] MEDS: Ondansetron 4 mg VIAL 2 MG/ML 2 ml VIAL IV PRN (12:58)
== END 2019-12-16 16:20 | disposition home or self-care (01) | DRG 229 ==
LOC: SSU → ICU 11-28 17:24 → SSU 11-29 14:57
PROVIDERS: ADMIT Surgery; ATTEND Surgery

== ENCOUNTER 2021-08-11 13:12 | Inpatient (IN) ==
[2021-08-11] MEDS ORDERED: Ondansetron 4 mg VIAL 2 MG/ML 2 ml VIAL IV ONE (16:08)
[2021-08-11] MEDS ORDERED: Lactated Ringers 1000 ml BAG 1,000 ML IV ONE (16:14)
[2021-08-11] MEDS ORDERED: Thiamine 100 MG/ML 2 ml VIAL 100 MG, Folic Acid IV 1 MG, Multiple Vitamin IV ADULT 10 M... IV ONE (16:30)
[2021-08-11 17:14] LABS: ABS Basophils 0.1 10^3/ul (0-0.2); ABS Lymphocytes 0.7 10^3/ul (1.0-4.8); Eosinophil % 0.3 %; Hematocrit 36 % (35-47); Hemoglobin 12.3 g/dL (12.0-16.0); Lymphocyte % 6.9 %; Mean Corpuscular HGB Conc 34 g/dL (31-36); Mean Corpuscular Hemoglobin 31 pg (27-31); Mean Corpuscular Volume 90 fL (80-97); Mean Platelet Volume 8.3 fL (7.4-10.4); Platelet Count 305 10^3/uL (150-450); Red Cell Distribution Width 13 % (10-15); White Blood Count 9.8 10^3/uL (3.5-10.8)
[2021-08-11 17:19] LABS: Urine Appearance Clear; Urine Bilirubin Negative (Negative); Urine Blood Negative (Negative); Urine Color Yellow; Urine Glucose Negative (Negative); Urine Ketones 1+ (Negative); Urine Nitrite Negative (Negative); Urine Protein Negative (Negative); Urine Specific Gravity 1.013 (1.002-1.030); Urine Urobilinogen Negative (Negative)
[2021-08-11 17:52] LABS: ALT 60 U/L (7-52); Albumin 3.6 g/dL (3.2-5.2); Albumin/Globulin Ratio 1.3 (1-3); Alkaline Phosphatase 327 U/L (35-149); Blood Urea Nitrogen 12 mg/dL (6-24); C Reactive Protein 414.19 mg/L (<8.01); CO2 Carbon Dioxide 22 mmol/L (22-32); Calcium 9.1 mg/dL (8.6-10.3); Chloride 99 mmol/L (101-111); Globulin 2.7 g/dL (2-4); Glucose 90 mg/dL (70-100); Lipase 16 U/L (11.0-82.0); Sodium 135 mmol/L (135-145); Total Protein 6.3 g/dL (6.4-8.9); eGFR CKD-EPI 88.8 (>60)
[2021-08-11 17:54] LABS: Anion Gap 14 mmol/L (2-11)
[2021-08-11] MEDS ORDERED: Iodixanol (CONTRAST) 320 MG/ML 100 ML SDV IV ONE (17:59)
[2021-08-11] MEDS ORDERED: Piperacillin/Tazobac ADVAN 3.375 GM in NS 0.9% 100 ml BAG 100 ML IV ONE (18:57)
[2021-08-11] MEDS ORDERED: Morphine 4 MG/ML VIAL (1 ml) IV ONE (19:05)
[2021-08-11] MEDS ORDERED: Acetaminophen IV 1 GM/100ML 100 ML IV ONE (22:14)
[2021-08-11] MEDS ORDERED: Morphine 2 MG/ML SYRINGE IV PRN ×2 (22:51→22:52)
[2021-08-11] MEDS ORDERED: Enoxaparin 40 MG/0.4 ML SYR SUBCUT SCH (23:00)
[2021-08-11] MEDS ORDERED: Zosyn per Pharmacy NOTE FOLLOW UP SCH (23:00)
[2021-08-12] MEDS ORDERED: ZOSYN 3.375 GM per EXTENDED INFUSION IV ONE (00:30)
[2021-08-12] MEDS ORDERED: ZOSYN 3.375 GM Q8H per EXTENDED INFUSION IV SCH (01:30)
[2021-08-12 02:45] LABS: Potassium Redraw 3.9 mmol/L (3.5-5.0)
[2021-08-12] MEDS: Lactated Ringers 1000 ml BAG 1,000 ML IV SCH ×2 (03:37→22:07)
[2021-08-12] MEDS: Ondansetron 4 mg VIAL 2 MG/ML 2 ml VIAL IV PRN (04:05)
[2021-08-12] MEDS: Morphine 2 MG/ML SYRINGE IV PRN ×3 (04:07→19:57)
[2021-08-12] MEDS: Levothyroxine 100 MCG/5 ML VIAL IV SCH (06:33)
[2021-08-12] MEDS ORDERED: Acetaminophen IV 1 GM/100ML 100 ML IV ONE (07:00)
[2021-08-12 10:39] LABS: ABS Lymphocytes 0.8 10^3/ul (1.0-4.8); ABS Monocytes 1.4 10^3/ul (0-0.8); ABS Neutrophils 11.8 10^3/ul (1.5-7.7); Eosinophil % 0.2 %; Hematocrit 35 % (35-47); Lymphocyte % 5.6 %; Mean Corpuscular HGB Conc 34 g/dL (31-36); Mean Corpuscular Hemoglobin 31 pg (27-31); Mean Corpuscular Volume 90 fL (80-97); Mean Platelet Volume 7.8 fL (7.4-10.4); Platelet Count 313 10^3/uL (150-450); Red Blood Count 3.86 10^6 /uL (3.70-4.87); Red Cell Distribution Width 13 % (10-15); White Blood Count 14.1 10^3/uL (3.5-10.8)
[2021-08-12 11:18] LABS: Albumin 3.2 g/dL (3.2-5.2); Albumin/Globulin Ratio 1.4 (1-3); Calcium 8.6 mg/dL (8.6-10.3); Globulin 2.3 g/dL (2-4); Potassium 4.1 mmol/L (3.5-5.0); Total Bilirubin 0.9 mg/dL (0.2-1.0); Total Protein 5.5 g/dL (6.4-8.9); eGFR CKD-EPI 83.6 (>60)
[2021-08-12] MEDS ORDERED: Lactated Ringers 1000 ml BAG 1,000 ML IV ONE (11:40)
[2021-08-12] MEDS: ZOSYN 3.375 GM Q8H per EXTENDED INFUSION IV SCH ×2 (12:50→19:51)
[2021-08-12] MEDS: Acetaminophen IV 1 GM/100ML 100 ML IV PRN ×2 (17:10→23:09)
[2021-08-13] MEDS: Morphine 2 MG/ML SYRINGE IV PRN ×2 (03:19→20:50)
[2021-08-13] MEDS: ZOSYN 3.375 GM Q8H per EXTENDED INFUSION IV SCH ×3 (04:08→20:43)
[2021-08-13] MEDS: Levothyroxine 100 MCG/5 ML VIAL IV SCH (05:30)
[2021-08-13] MEDS: Acetaminophen IV 1 GM/100ML 100 ML IV PRN ×3 (05:34→20:50)
[2021-08-13 06:38] LABS: Hematocrit 34 % (35-47); Hemoglobin 11.2 g/dL (12.0-16.0); Mean Corpuscular HGB Conc 34 g/dL (31-36); Mean Corpuscular Hemoglobin 30 pg (27-31); Mean Corpuscular Volume 91 fL (80-97); Mean Platelet Volume 7.9 fL (7.4-10.4); Platelet Count 336 10^3/uL (150-450); Red Cell Distribution Width 13 % (10-15); White Blood Count 12.6 10^3/uL (3.5-10.8)
[2021-08-13 07:00] LABS: Albumin 2.9 g/dL (3.2-5.2); Albumin/Globulin Ratio 1.2 (1-3); Calcium 8.5 mg/dL (8.6-10.3); Globulin 2.4 g/dL (2-4); Magnesium 1.7 mg/dL (1.9-2.7); Potassium 3.9 mmol/L (3.5-5.0); Total Bilirubin 0.7 mg/dL (0.2-1.0); Total Protein 5.3 g/dL (6.4-8.9); eGFR CKD-EPI 100.6 (>60)
[2021-08-13] MEDS ORDERED: Magnesium Sulfate 2 gm BAG 2 GM/50 ML BAG IVPB ONE (08:06)
[2021-08-13] MEDS ORDERED: Acetaminophen IV 1 GM/100ML 100 ML IV PRN (08:11)
[2021-08-13 08:12] LABS: C Reactive Protein 548.78 mg/L (<8.01)
[2021-08-13] MEDS ORDERED: Magnesium Hydroxide LIQ 30 ML UDC PO ONE (08:13)
[2021-08-13] MEDS: D5W 1/2 NS KCl 20 meq 1000 ml 1,000 ML IV SCH ×2 (09:04→23:20)
[2021-08-13] MEDS: Metoprolol Tartrate 5 mg VIAL 5 ml VIAL (1 mg/ml) IV PRN ×3 (09:06→21:25)
[2021-08-13] MEDS ORDERED: Metoprolol Tartrate 5 mg VIAL 5 ml VIAL (1 mg/ml) IV ONE (11:11)
[2021-08-13] MEDS: Famotidine IV 10 MG/ML 2 ml VIAL (20 mg) IV SLOW PU ONE ×2 (12:55→14:00)
[2021-08-13] MEDS ORDERED: ZOSYN 3.375 GM Q6H IV SCH (13:00)
[2021-08-13] MEDS ORDERED: Diltiazem IV push/loading dose 5 MG/ML 5 ML vial (25 mg) IV SLOW PU ONE (15:12)
[2021-08-13 16:14] LABS: Magnesium 2.1 mg/dL (1.9-2.7); eGFR CKD-EPI 102.5 (>60)
[2021-08-14] MEDS: Acetaminophen IV 1 GM/100ML 100 ML IV PRN ×5 (03:36→23:03)
[2021-08-14] MEDS: ZOSYN 3.375 GM Q8H per EXTENDED INFUSION IV SCH ×3 (04:36→20:35)
[2021-08-14] MEDS: Morphine 2 MG/ML SYRINGE IV PRN ×2 (04:55→14:03)
[2021-08-14] MEDS: Levothyroxine 100 MCG/5 ML VIAL IV SCH (06:18)
[2021-08-14 08:02] LABS: Calcium 7.8 mg/dL (8.6-10.3); Potassium 4.3 mmol/L (3.5-5.0); eGFR CKD-EPI 96.3 (>60)
[2021-08-14] MEDS: D5W 1/2 NS KCl 20 meq 1000 ml 1,000 ML IV SCH ×2 (09:44→10:09)
[2021-08-14] MEDS: Enoxaparin 40 MG/0.4 ML SYR SUBCUT SCH (21:02)
[2021-08-15] MEDS: Metoprolol Tartrate 5 mg VIAL 5 ml VIAL (1 mg/ml) IV PRN (00:12)
[2021-08-15] MEDS ORDERED: Metoprolol Tartrate 5 mg VIAL 5 ml VIAL (1 mg/ml) IV PRN (03:32)
[2021-08-15] MEDS: ZOSYN 3.375 GM Q8H per EXTENDED INFUSION IV SCH ×3 (04:12→20:03)
[2021-08-15] MEDS: Levothyroxine 100 MCG/5 ML VIAL IV SCH (06:08)
[2021-08-15 06:19] LABS: Hematocrit 31 % (35-47); Hemoglobin 10.7 g/dL (12.0-16.0); Mean Corpuscular HGB Conc 35 g/dL (31-36); Mean Corpuscular Hemoglobin 31 pg (27-31); Mean Corpuscular Volume 90 fL (80-97); Mean Platelet Volume 7.5 fL (7.4-10.4); Platelet Count 394 10^3/uL (150-450); Red Blood Count 3.46 10^6 /uL (3.70-4.87); Red Cell Distribution Width 13 % (10-15)
[2021-08-15 06:41] LABS: Magnesium 2.1 mg/dL (1.9-2.7); Potassium 4.3 mmol/L (3.5-5.0); eGFR CKD-EPI 99.9 (>60)
[2021-08-15 06:53] LABS: TSH Ultra Thyroid Stim Horm 3.64 mcIU/mL (0.34-5.60)
[2021-08-15 06:55] LABS: Free T4 1.34 ng/dL (0.61-1.12)
[2021-08-15] MEDS: Acetaminophen IV 1 GM/100ML 100 ML IV PRN ×2 (09:52→22:53)
[2021-08-15] MEDS ORDERED: Digoxin IV 0.5 MG/2 ML AMP (0.25 MG/ML) IV SLOW PU ONE (10:51)
[2021-08-15 12:13] LABS: Ferritin 962.6 ng/mL (11-307)
[2021-08-15] MEDS: D5W 1/2 NS KCl 20 meq 1000 ml 1,000 ML IV SCH (13:44)
[2021-08-15] MEDS: Ondansetron 4 mg VIAL 2 MG/ML 2 ml VIAL IV PRN (16:50)
[2021-08-15] MEDS: Enoxaparin 40 MG/0.4 ML SYR SUBCUT SCH (20:11)
[2021-08-16] MEDS: D5W 1/2 NS KCl 20 meq 1000 ml 1,000 ML IV SCH ×2 (00:18→22:05)
[2021-08-16] MEDS: ZOSYN 3.375 GM Q8H per EXTENDED INFUSION IV SCH ×3 (03:25→20:13)
[2021-08-16] MEDS: Levothyroxine 100 MCG/5 ML VIAL IV SCH (05:58)
[2021-08-16 07:59] LABS: Hematocrit 35 % (35-47); Hemoglobin 11.9 g/dL (12.0-16.0); Mean Corpuscular HGB Conc 34 g/dL (31-36); Mean Corpuscular Hemoglobin 31 pg (27-31); Mean Corpuscular Volume 90 fL (80-97); Mean Platelet Volume 7.2 fL (7.4-10.4); Platelet Count 523 10^3/uL (150-450); Red Blood Count 3.88 10^6 /uL (3.70-4.87); Red Cell Distribution Width 13 % (10-15); White Blood Count 8.5 10^3/uL (3.5-10.8)
[2021-08-16] MEDS: Morphine 2 MG/ML SYRINGE IV PRN ×2 (08:34→15:48)
[2021-08-16] MEDS: Acetaminophen IV 1 GM/100ML 100 ML IV PRN ×2 (08:47→20:15)
[2021-08-16 08:49] LABS: C Reactive Protein 249.75 mg/L (<8.01); Calcium 8.5 mg/dL (8.6-10.3); Magnesium 2.1 mg/dL (1.9-2.7); Potassium 4.4 mmol/L (3.5-5.0); eGFR CKD-EPI 91.7 (>60)
[2021-08-16] MEDS: Enoxaparin 40 MG/0.4 ML SYR SUBCUT SCH (20:13)
[2021-08-17] MEDS: ZOSYN 3.375 GM Q8H per EXTENDED INFUSION IV SCH ×3 (03:21→20:04)
[2021-08-17] MEDS: Acetaminophen IV 1 GM/100ML 100 ML IV PRN ×3 (05:16→17:21)
[2021-08-17] MEDS ORDERED: Levothyroxine 100 MCG/5 ML VIAL IV SCH (06:00)
[2021-08-17] MEDS: Morphine 2 MG/ML SYRINGE IV PRN (17:21)
[2021-08-17] MEDS: Enoxaparin 40 MG/0.4 ML SYR SUBCUT SCH (20:20)
[2021-08-18] MEDS: Acetaminophen IV 1 GM/100ML 100 ML IV PRN (01:21)
[2021-08-18] MEDS: Morphine 2 MG/ML SYRINGE IV PRN (01:21)
[2021-08-18] MEDS: ZOSYN 3.375 GM Q8H per EXTENDED INFUSION IV SCH ×3 (04:15→21:19)
[2021-08-18] MEDS ORDERED: Iodixanol (CONTRAST) 320 MG/ML 100 ML SDV IV ONE (09:59)
[2021-08-18] MEDS: Enoxaparin 40 MG/0.4 ML SYR SUBCUT SCH (23:21)
[2021-08-18] MEDS: Nystatin SUSPENSION 100,000 UNITS/ML UDC PO SCH (23:21)
[2021-08-19] MEDS: ZOSYN 3.375 GM Q8H per EXTENDED INFUSION IV SCH ×2 (03:52→12:14)
[2021-08-19 06:54] LABS: Hematocrit 35 % (35-47); Hemoglobin 11.8 g/dL (12.0-16.0); Mean Corpuscular HGB Conc 34 g/dL (31-36); Mean Corpuscular Hemoglobin 31 pg (27-31); Mean Corpuscular Volume 90 fL (80-97); Mean Platelet Volume 6.8 fL (7.4-10.4); Platelet Count 617 10^3/uL (150-450); Red Blood Count 3.85 10^6 /uL (3.70-4.87); Red Cell Distribution Width 13 % (10-15); White Blood Count 7.9 10^3/uL (3.5-10.8)
[2021-08-19 07:22] LABS: Calcium 8.9 mg/dL (8.6-10.3); eGFR CKD-EPI 82.3 (>60)
[2021-08-19 08:35] LABS: RBC Morphology Normal (Normal)
[2021-08-19 08:36] LABS: ABS Eosinophils 0.1 10^3/ul (0-0.6); ABS Lymphocytes 1.5 10^3/ul (1.0-4.8); ABS Monocytes 0.7 10^3/ul (0-0.8); ABS Neutrophils 5.5 10^3/ul (1.5-7.7); Eosinophil % 1.8 %; Lymphocyte % 19.2 %
[2021-08-19] MEDS: Nystatin SUSPENSION 100,000 UNITS/ML UDC PO SCH ×2 (09:37→13:16)
[2021-08-19 10:06] LABS: C Reactive Protein 66.49 mg/L (<8.01)
[2021-08-19 11:16] VITALS: BP 152/71
== END 2021-08-19 16:40 | disposition home or self-care (01) | DRG 244 ==
LOC: ED 13:12 → EDHOLD 22:16 → SUATTDRO 22:16 → MED 08-12 01:04
PROVIDERS: ADMIT Student in an Organized Health Care Education/Training Program; ATTEND Internal Medicine